=== PATIENT | female | born 2000 | race Caucasian/White ===

== ENCOUNTER 2022-02-14 12:43 | Emergency (ER) | payer OTHER ==
[~2022-02-14] VITALS: Ht 154.9 cm; Wt 61.1 kg
[2022-02-14] MEDS ORDERED: PREN1CHW6 PO (12:51)
[2022-02-14 17:02] LABS: BASO % 0.3 % (0.0-1.0); EOS % 0.4 % (0.0-3.0); HEMATOCRIT 34.7 % (36.0-47.0); HEMOGLOBIN 10.6 g/dl (12.0-15.5); LYMPH # 2.2 10^3/uL (1.5-5.0); LYMPH % 29.1 % (24.0-44.0); MEAN CORPUSCULAR HEMOGLOBIN 20.1 pg (27.0-33.0); MEAN CORPUSCULAR HGB CONC 30.5 g/dl (32.0-36.5); MEAN CORPUSCULAR VOLUME 65.8 fl (80.0-96.0); MONO # 0.6 10^3/uL (0.0-0.8); MONO % 7.5 % (2.0-8.0); NEUTROPHILS # 4.7 10^3/uL (1.5-8.5); NEUTROPHILS % 62.4 % (36.0-66.0); PLATELET COUNT, AUTOMATED 239 10^3/uL (150-450); RED BLOOD COUNT 5.27 10^6/uL (4.00-5.40); WHITE BLOOD COUNT 7.5 10^3/uL (4.0-10.0)
[2022-02-14 20:50] VITALS: BP 114/71
== END 2022-02-14 20:52 | disposition home or self-care (01) ==
LOC: M ED 12:43
DX: O20.0 Threatened abortion (principal); J45.909 Unspecified asthma, uncomplicated; Z3A.01 Less than 8 weeks gestation of pregnancy; O99.511 Diseases of the respiratory system complicating pregnancy, first trimester

== ENCOUNTER → 2022-02-16 | Outpatient (CLI) | payer OTHER ==
[~2022-02-16] MED LIST: PREN1CHW6 PO
== END ==
LOC: M LAB 13:30
PROVIDERS: ATTEND Physician Assistant
DX: Z36.89 Encounter for other specified antenatal screening (principal)

== ENCOUNTER 2022-09-21 16:04 | Outpatient (CLI) | payer OTHER ==
[~2022-09-21] VITALS: Ht 154.9 cm; Wt 77.6 kg
[2022-09-21 16:28] VITALS: BP 126/70
== END 2022-09-21 17:50 | disposition home or self-care (01) ==
LOC: M LDO 16:04
PROVIDERS: ATTEND Obstetrics & Gynecology
DX: O26.893 Other specified pregnancy related conditions, third trimester (principal); N89.8 Other specified noninflammatory disorders of vagina; Z3A.36 36 weeks gestation of pregnancy
CPT/HCPCS: 59025; G0463

== ENCOUNTER 2022-10-15 07:48 | Inpatient (IN) | payer OTHER ==
[2022-10-15] VITALS (8 sets, daily range): BP systolic 99–134; BP diastolic 57–79
[~2022-10-15] VITALS: Ht 154.9 cm; Wt 78.7 kg
[2022-10-15] MEDS ORDERED: FERR324T21 PO (08:09)
[2022-10-15] MEDS ORDERED: HOME MED LIST COMPLETE! XX SCH (08:10)
[2022-10-15] MEDS ORDERED: LACTATED RINGER'S 1000 ML IV STA (08:54)
[2022-10-15] MEDS ORDERED: CARBOPROST TROMETHAMINE 250 MCG/ML AMP IM PRN (08:55)
[2022-10-15] MEDS ORDERED: TRANEXAMIC ACID INJection 1,000 MG in NS 100 ML IV PRN (08:55)
[2022-10-15] MEDS ORDERED: LIDOCAINE 1% MDV 20ML VIAL INFIL PRN (08:55)
[2022-10-15] MEDS ORDERED: OXYTOCIN DRIP 30 UNITS in IV 1 EA IV PRN ×6 (08:55)
[2022-10-15] MEDS ORDERED: OXYTOCIN INJ 10UNITS/ML 1ML VIAL IM PRN (08:55)
[2022-10-15] MEDS ORDERED: METHYLERGONOVINE MALEATE 0.2MG/ML 1ML VIAL IM PRN (08:55)
[2022-10-15] MEDS ORDERED: OXYTOCIN DRIP 30 UNITS in IV 1 EA IV SCH ×2 (08:55→13:45)
[2022-10-15] MEDS ORDERED: LR 1,000 ML IV SCH ×3 (08:55→13:45)
[2022-10-15] MEDS ORDERED: OXYTOCIN INJ 10UNITS/ML 1ML VIAL IV PRN (08:55)
[2022-10-15] MEDS: PRENATAL VITAMINS CHEWABLE TABLET PO SCH (09:00)
[2022-10-15 09:31] LABS: HEMATOCRIT 35.5 % (36.0-47.0); MEAN CORPUSCULAR HEMOGLOBIN 21.5 pg (27.0-33.0); MEAN CORPUSCULAR VOLUME 69.3 fl (80.0-96.0); PLATELET COUNT, AUTOMATED 190 10^3/uL (150-450); RED BLOOD COUNT 5.12 10^6/uL (4.00-5.40); WHITE BLOOD COUNT 13.1 10^3/uL (4.0-10.0)
[2022-10-15] MEDS ORDERED: BICITRA 30ML SOLN UDC As Ordered ONE (12:57)
[2022-10-15] MEDS ORDERED: ceFAZolin 2 GM/D5W 50 ML IV BAG As Ordered ONE (12:58)
[2022-10-15] MEDS ORDERED: FLUID PLACE HOLDER IV ONE (13:00)
[2022-10-15] MEDS ORDERED: GENTAMICIN IV ONE ×2 (13:00→14:00)
[2022-10-15] MEDS ORDERED: CLINDAMYCIN 900 MG in IV 1 EA IV ONE (13:00)
[2022-10-15] MEDS ORDERED: ceFAZolin SOD 3 GM IV Place Holder IV ONE (13:15)
[2022-10-15] MEDS ORDERED: BICITRA 30ML SOLN UDC PO ONE (13:15)
[2022-10-15] MEDS ORDERED: MORPHINE PRES-FREE INJ 10 MG/10 ML VIAL As Ordered ONE (13:17)
[2022-10-15] MEDS ORDERED: ONDANSETRON 4MG 2ML VIAL As Ordered ONE ×2 (13:18→14:32)
[2022-10-15] MEDS ORDERED: KETOROLAC 60MG 2ML VIAL As Ordered ONE (13:18)
[2022-10-15] MEDS ORDERED: OXYTOCIN 30UNITS IN 0.9% NaCl 500ML IV BAG As Ordered ONE ×2 (13:18→13:38)
[2022-10-15] MEDS ORDERED: ACETAMINOPHEN 1000MG 100ML IV BAG As Ordered ONE (13:23)
[2022-10-15] MEDS ORDERED: ceFAZolin SOD 2 GM in IV 1 EA IV ONE (13:35)
[2022-10-15 13:40] LABS: CORD GAS ABE A -4.6; CORD GAS ABE V -5.6; CORD GAS HCO3 A 24.5 MMOL/L; CORD GAS HCO3 V 21.3 MMOL/L; CORD GAS O2 SAT A 61.1 %; CORD GAS O2 SAT V 62.2 %; CORD GAS PCO2 A 61.7 mmHg; CORD GAS PCO2 V 46.8 mmHg; CORD GAS PH A 7.216 UNITS; CORD GAS PH V 7.276 UNITS; CORD GAS PO2 A 29.6 mmHg; CORD GAS PO2 V 27.6 mmHg; CORD GAS SBC A 19.8 MMOL/L; CORD GAS SBC V 19.1 MMOL/L; CORD GAS TCO2 A 26.4 MMOL/L; CORD GAS TCO2 V 22.7 MMOL/L
[2022-10-15] MEDS ORDERED: AZITHROMYCIN INJ 500 MG, VIAL MATE ADAPTER 1 EACH in NS 250 ML IV ONE (13:40)
[2022-10-15] MEDS ORDERED: NALOXONE INJ 0.4MG/1ML VIAL IV PRN ×2 (13:45)
[2022-10-15] MEDS ORDERED: **NOTE PATIENT COMMENT** MISC XX SCH (13:45)
[2022-10-15] MEDS ORDERED: fentaNYL 100 MCG/2 ML INJECTION IV PRN (13:45)
[2022-10-15] MEDS ORDERED: METOCLOPRAMIDE INJ 10MG/2ML VIAL IV PRN (13:45)
[2022-10-15] MEDS ORDERED: ONDANSETRON 4MG 2ML VIAL IV PRN (13:45)
[2022-10-15] MEDS ORDERED: oxyCODONE 5MG TAB PO PRN ×3 (13:45)
[2022-10-15] MEDS ORDERED: MOM 30ML SUSPENSION UDC PO PRN (13:45)
[2022-10-15] MEDS: SLF 3 ML SYR IV SCH ×2 (13:45→22:38)
[2022-10-15] MEDS ORDERED: DOCUSATE SODIUM 100MG CAPSULE PO PRN (13:45)
[2022-10-15] MEDS ORDERED: diphenhydrAMINE 50MG/ML VIAL IV PRN (13:45)
[2022-10-15] MEDS ORDERED: D5W IV ONE (14:00)
[2022-10-15] MEDS: DOCUSATE SODIUM 100MG CAPSULE PO SCH (20:11)
[2022-10-15] MEDS: KETOROLAC 30 MG/ML 1ML VIAL IV SCH (20:11)
[2022-10-16 02:00] VITALS: BP 111/53
[2022-10-16] MEDS: KETOROLAC 30 MG/ML 1ML VIAL IV SCH ×2 (03:18→08:39)
[2022-10-16 06:00] VITALS: BP_SYST 113; BP_SYST 122; BP_DIAS 57; BP_DIAS 66
[2022-10-16 08:23] LABS: HEMATOCRIT 30.9 % (36.0-47.0); HEMOGLOBIN 9.5 g/dl (12.0-15.5); MEAN CORPUSCULAR HEMOGLOBIN 21.5 pg (27.0-33.0); MEAN CORPUSCULAR HGB CONC 30.7 g/dl (32.0-36.5); MEAN CORPUSCULAR VOLUME 70.1 fl (80.0-96.0); PLATELET COUNT, AUTOMATED 183 10^3/uL (150-450); RED BLOOD COUNT 4.41 10^6/uL (4.00-5.40); WHITE BLOOD COUNT 15.9 10^3/uL (4.0-10.0)
[2022-10-16] MEDS: SLF 3 ML SYR IV SCH (08:38)
[2022-10-16] MEDS: DOCUSATE SODIUM 100MG CAPSULE PO SCH ×2 (08:38→20:42)
[2022-10-16] MEDS: PRENATAL VITAMINS CHEWABLE TABLET PO SCH (08:39)
[2022-10-16 14:00] VITALS: BP 105/54
[2022-10-16] MEDS: IBUPROFEN 800 MG TAB PO SCH ×2 (17:05→23:58)
[2022-10-16 18:00] VITALS: BP 119/71
[2022-10-16] MEDS: SIMETHICONE 80MG CHEW TAB PO PRN (21:41)
[2022-10-16] MEDS: ACETAMINOPHEN 500 MG TAB PO PRN (21:42)
[2022-10-16 22:00] VITALS: BP 125/67
[2022-10-17 02:00] VITALS: BP 102/55
[2022-10-17] MEDS: PRENATAL VITAMINS CHEWABLE TABLET PO SCH (08:18)
[2022-10-17] MEDS: IBUPROFEN 800 MG TAB PO SCH (08:18)
[2022-10-17] MEDS: DOCUSATE SODIUM 100MG CAPSULE PO SCH (08:18)
[2022-10-17] MEDS ORDERED: MEASLES,MUMPS,RUBELLA VACCINE INJ (MMR-II) SC.IMMUN ONE (09:00)
[2022-10-17] MEDS: SIMETHICONE 80MG CHEW TAB PO PRN (09:33)
[2022-10-17 10:00] VITALS: BP 129/55
[2022-10-17] MEDS: ACETAMINOPHEN 500 MG TAB PO PRN (10:07)
== END 2022-10-17 12:20 | disposition home or self-care (01) | DRG 773 ==
LOC: M LDO 07:48 → M LDI 09:05 → M OBS 15:59
PROVIDERS: ADMIT Obstetrics & Gynecology; ATTEND Obstetrics & Gynecology
PROC: 10D00Z1 Extraction of Products of Conception, Low, Open Approach (ICD-10-PCS; principal; 2022-10-15 13:04)
DX: O76 Abnormality in fetal heart rate and rhythm complicating labor and delivery (principal); O77.0 Labor and delivery complicated by meconium in amniotic fluid; Z3A.39 39 weeks gestation of pregnancy; Z37.0 Single live birth; O69.1XX0 Labor and delivery complicated by cord around neck, with compression, not applicable or unspecified

== ENCOUNTER → 2024-01-08 | Outpatient (REF) | payer OTHER ==
[~2024-01-08] MED LIST changes: +FERR324T21 PO
== END ==
LOC: M PLALAB 14:44
PROVIDERS: ATTEND Advanced Practice Midwife
DX: Z34.91 Encounter for supervision of normal pregnancy, unspecified, first trimester (principal)

== ENCOUNTER → 2024-01-08 | Outpatient (CLI) | payer OTHER ==
[2024-01-08 17:57] LABS: HEMATOCRIT 32.7 % (36.0-47.0); HEMOGLOBIN 10.2 g/dl (12.0-15.5); MEAN CORPUSCULAR HEMOGLOBIN 20.3 pg (27.0-33.0); MEAN CORPUSCULAR HGB CONC 31.2 g/dl (32.0-36.5); MEAN CORPUSCULAR VOLUME 65.1 fl (80.0-96.0); PLATELET COUNT, AUTOMATED 237 10^3/uL (150-450); RED BLOOD COUNT 5.02 10^6/uL (4.00-5.40); WHITE BLOOD COUNT 9.8 10^3/uL (4.0-10.0)
[2024-01-08 18:51] LABS: GC DNA AMPLIFICATION NEGATIVE (NEGATIVE)
[2024-01-08 18:56] LABS: HIV 1&2 SCREEN NEGATIVE (NEGATIVE)
[2024-01-08 19:05] LABS: HEPATITIS C VIRUS ABY INDEX < 0.02 INDEX (<0.8)
== END ==
LOC: M PLALAB 15:26
PROVIDERS: ATTEND Advanced Practice Midwife
DX: Z34.91 Encounter for supervision of normal pregnancy, unspecified, first trimester (principal); Z3A.00 Weeks of gestation of pregnancy not specified

== ENCOUNTER → 2024-03-27 | Outpatient (CLI) | payer OTHER | LOC: M WHC 13:40 | PROVIDERS: ATTEND Specialist | DX: Z34.82 Encounter for supervision of other normal pregnancy, second trimester (principal); Z3A.20 20 weeks gestation of pregnancy ==

== ENCOUNTER → 2024-05-13 | Outpatient (CLI) | payer OTHER ==
[2024-05-13 17:31] LABS: HEMATOCRIT 31.5 % (36.0-47.0); HEMOGLOBIN 9.7 g/dl (12.0-15.5); MEAN CORPUSCULAR HEMOGLOBIN 21.2 pg (27.0-33.0); MEAN CORPUSCULAR HGB CONC 30.8 g/dl (32.0-36.5); MEAN CORPUSCULAR VOLUME 68.9 fl (80.0-96.0); PLATELET COUNT, AUTOMATED 241 10^3/uL (150-450); RED BLOOD COUNT 4.57 10^6/uL (4.00-5.40); WHITE BLOOD COUNT 9.2 10^3/uL (4.0-10.0)
[2024-05-13 18:01] LABS: GLUCOSE CHALLENGE TEST 1 HOUR 94 MG/DL (LESS THAN 140)
[2024-05-13 18:30] LABS: HIV 1&2 SCREEN NEGATIVE (NEGATIVE)
[2024-05-13 18:37] LABS: HEPATITIS C VIRUS ABY INDEX 0.18 INDEX (<0.8)
[2024-05-13 19:30] LABS: GC DNA AMPLIFICATION NEGATIVE (NEGATIVE)
== END ==
LOC: M PLALAB 14:01
PROVIDERS: ATTEND Advanced Practice Midwife
DX: Z34.82 Encounter for supervision of other normal pregnancy, second trimester (principal)

== ENCOUNTER 2024-06-13 15:06 | Outpatient (CLI) | payer OTHER ==
[~2024-06-13] VITALS: Ht 154.9 cm; Wt 70.5 kg
[~2024-06-13 15:06] MED LIST changes: +ALBUTEROL SULFATE 2.5MG/0.5ML INH NEB SOLN INH PRN; +EPINEPHrine INJ 1 MG/ML 1ML AMP IM PRN; +diphenhydrAMINE 50MG/ML VIAL IV PRN; +methylPREDNISolone 125MG 2ML VIAL IV PRN
[2024-06-13 15:25] VITALS: BP 118/56; O2SAT 96
[2024-06-13] MEDS: diphenhydrAMINE 25MG CAP PO ONE (15:31)
[2024-06-13] MEDS: ACETAMINOPHEN 650 MG PO ONE (15:32)
[2024-06-13] MEDS: FERRIC CARBOXYMALTOSE 750 MG (VIAL MATE) IN 100ML NS IV ONE (15:33)
[2024-06-13 16:28] VITALS: BP 121/56; O2SAT 97
== END 2024-06-13 16:40 | disposition home or self-care (01) ==
LOC: M INFU 15:06
PROVIDERS: ATTEND Obstetrics & Gynecology
DX: D64.9 Anemia, unspecified (principal); Z88.0 Allergy status to penicillin
CPT/HCPCS: 96365; J1439

== ENCOUNTER 2024-06-30 11:30 | Outpatient (CLI) | payer OTHER ==
[~2024-06-30] VITALS: Ht 154.9 cm; Wt 70.5 kg
[2024-06-30 11:30] VITALS: BP 122/58; O2SAT 100
[~2024-06-30 11:30] MED LIST changes: +NS (Normal Saline) 0.9% 1,000 ML IV SCH
[2024-06-30] MEDS: ACETAMINOPHEN 650 MG PO ONE (11:42)
[2024-06-30] MEDS: FERRIC CARBOXYMALTOSE 750 MG (VIAL MATE) IN 100ML NS IV ONE (11:43)
[2024-06-30] MEDS: diphenhydrAMINE 25MG CAP PO ONE (11:43)
[2024-06-30 12:05] VITALS: BP 114/56; O2SAT 100
== END 2024-06-30 12:10 ==
LOC: M INFU 11:30
PROVIDERS: ATTEND Obstetrics & Gynecology
DX: D64.9 Anemia, unspecified (principal); Z88.0 Allergy status to penicillin
CPT/HCPCS: 96365; G0463; J1439

== ENCOUNTER → 2024-07-14 | Outpatient (CLI) | payer OTHER ==
[~2024-07-14] MED LIST changes: -ALBUTEROL SULFATE 2.5MG/0.5ML INH NEB SOLN INH PRN; -EPINEPHrine INJ 1 MG/ML 1ML AMP IM PRN; -NS (Normal Saline) 0.9% 1,000 ML IV SCH; -diphenhydrAMINE 50MG/ML VIAL IV PRN; -methylPREDNISolone 125MG 2ML VIAL IV PRN
[2024-07-14 15:22] LABS: HEMATOCRIT 34.7 % (36.0-47.0); HEMOGLOBIN 10.5 g/dl (12.0-15.5); MEAN CORPUSCULAR HEMOGLOBIN 21.3 pg (27.0-33.0); MEAN CORPUSCULAR HGB CONC 30.3 g/dl (32.0-36.5); MEAN CORPUSCULAR VOLUME 70.2 fl (80.0-96.0); PLATELET COUNT, AUTOMATED 173 10^3/uL (150-450); RED BLOOD COUNT 4.94 10^6/uL (4.00-5.40); WHITE BLOOD COUNT 10.7 10^3/uL (4.0-10.0)
== END ==
LOC: M PLALAB 11:33
PROVIDERS: ATTEND Advanced Practice Midwife
DX: O99.013 Anemia complicating pregnancy, third trimester (principal)

== ENCOUNTER → 2024-07-24 | Outpatient (CLI) | payer OTHER | LOC: M WHC 06:48 | PROVIDERS: ATTEND Obstetrics & Gynecology | DX: O40.3XX0 Polyhydramnios, third trimester, not applicable or unspecified (principal); Z3A.35 35 weeks gestation of pregnancy ==